=== PATIENT | female | born 1965 | race Caucasian/White ===

== ENCOUNTER 2016-12-06 13:34 | Observation (INO) | payer OTHER ==
[~2016-12-06] VITALS: Ht 162.6 cm; Wt 61.7 kg
[~2016-12-06 13:34] MED LIST: AMOX TR-K600 MG/5 M PO; BACLOFEN10 MG PO; BACLOFEN20 MG PO; CALCIUM + D3 E1 EACH PO; CALCIUM 600 +1 EAC1 PO; CEFUROXIME500 MG PO; CELEXA40 MG PO; CLONAZEPAM0.5 MG PO; COLACE100 MG PO; DENAVIR 1% TP; DENAVIR1.5 GM TP; DEPO-PROVER150 MG/ML IM; DESITIN DIAPER113 GM TP; DOCUSATE SODIU100 MG PO; FIBER LAXATIVE PO; FIBER TABS625 MG PO; FIBER-TABS625 MG PO; FLEET ENEMA-AD118 ML PR; IBUPROFEN400 MG PO; LAXATIVE5 M1 PO; LINZESS290 MCG PO; MIRALAX17 GM PO; MIRALAX255 GM PO; MOBIC7.5 MG PO; OYSTER SHELL 21 EACH PO; PHENOBARBITAL32.4 MG PO; PHILLIPS'400 MG/5 M PO; POLYETHYLENE GL17 GM PO; PROSOURCE LIQUI30 ML PO; Q-TUSSIN DM SY240 ML PO; ROBITUSSIN100 MG/5 M PO; SENNA LAXATIVE8.6 MG PO; TRAMADOL HCL50 MG PO; TYLENOL REGULA325 MG PO; VITAMIN C500 M1 PO
[2016-12-06 14:29] LABS: HEMATOCRIT 41.4 % (36.0-46.0); MCH 30.8 PG (29.0-34.0); MCHC 31.9 G/DL (30.0-36.0); MCV 96.5 FL (83-99); MEAN PLAT.VOLUME 10.4 uM^3 (9.5-12.4); PLATELET COUNT 168 K/uL (156-360); RBC DIS.WIDTH-CV 12.5 % (11.8-14.6); RBC DIS.WIDTH-SD 44.7 % (39-53); RED BLOOD COUNT 4.29 M/uL (3.80-5.20)
[2016-12-06 14:39] LABS: CHLORIDE 104 mEq/L (99-109); POTASSIUM 3.9 mEq/L (3.7-5.4); SODIUM 140 mEq/L (136-147)
[2016-12-06 14:41] LABS: GLUCOSE 82 mg/dL (70-99)
[2016-12-06 14:42] LABS: ANION GAP 9 MEQ/L (2-14)
[2016-12-06 14:45] LABS: GFR ESTIMATE (CALCULATED) > 59 mL/min/
[2016-12-06 14:46] LABS: UREA NITROGEN (BUN) 20 mg/dL (9-23)
[2016-12-06 14:48] LABS: LIPASE 60 U/L (1.0-51.0)
[2016-12-06 14:49] LABS: D-DIMER ELISA 1.73 mg/L FEU (< 0.57)
[2016-12-06 14:51] LABS: TROP-I INTERPRETATION NEGATIVE; TROPONIN-I < 0.01 ng/mL (0.0-0.30)
[2016-12-06 14:53] LABS: QUANTITATIVE HCG < 4.0 MIU/ML
[2016-12-06] MEDS ORDERED: TRAMADOL HCL50 MG PO (19:36)
[2016-12-06] MEDS ORDERED: DESITIN MULTI-P99 GM TP (19:38)
[2016-12-06] MEDS ORDERED: METHIMAZOLE5 MG PO (19:38)
[2016-12-06] MEDS ORDERED: MELOXICAM7.5 MG PO (19:38)
[2016-12-06] MEDS ORDERED: LYRICA50 MG PO (19:38)
[2016-12-06] MEDS ORDERED: FLEET ENEMA-AD118 ML PR (19:38)
[2016-12-06] MEDS ORDERED: IBUPROFEN400 MG PO (19:39)
[2016-12-06 19:59] LABS: TOTAL BILIRUBIN 0.3 mg/dL (0.0-1.0)
[2016-12-06 20:00] LABS: ALKALINE PHOSPHATASE 106 IU/L (3-129)
[2016-12-06 20:02] LABS: DIRECT BILIRUBIN 0.1 mg/dL (0.0-0.3)
[2016-12-06 21:37] VITALS: BP 148/72
[2016-12-07 00:14] LABS: TROP-I INTERPRETATION NEGATIVE; TROPONIN-I < 0.01 ng/mL (0.0-0.30)
[2016-12-07 00:45] LABS: HDL CHOLESTEROL 53 MG/DL (Desirable>=50); LDL CHOLESTEROL 96 mg/dL (Desirable<100); NON-HDL CHOLESTEROL 109 mg/dL (Desirable<160); TOTAL CHOLESTEROL 162 mg/dL (Desirable<200); TRIGLYCERIDES 67 MG/DL (Normal: <150)
[2016-12-07 04:00] VITALS: BP 106/64
[2016-12-07 07:03] LABS: TROP-I INTERPRETATION NEGATIVE; TROPONIN-I < 0.01 ng/mL (0.0-0.30)
[2016-12-07 07:41] VITALS: BP 116/66
[2016-12-07 11:54] VITALS: BP 117/89
[2016-12-07] MEDS ORDERED: PEPCID AC20 MG PO ×2 (12:53→13:18)
[2016-12-07] MEDS ORDERED: MAALOX ADVANCE1 EACH PO ×2 (12:54→13:19)
== END 2016-12-07 14:33 | disposition home or self-care (01) ==
LOC: EME → EDBD 13:34 → EDOF 19:33 → 5WEST 19:33
PROVIDERS: Emergency Medicine; Physician Assistant Medical
DX: R07.9 Chest pain, unspecified (principal); Z82.49 Family history of ischemic heart disease and other diseases of the circulatory system; K81.9 Cholecystitis, unspecified; G80.0 Spastic quadriplegic cerebral palsy; G47.33 Obstructive sleep apnea (adult) (pediatric); R11.0 Nausea; R06.02 Shortness of breath; G40.909 Epilepsy, unspecified, not intractable, without status epilepticus; F71 Moderate intellectual disabilities; Z98.1 Arthrodesis status; Z81.1 Family history of alcohol abuse and dependence; Z88.8 Allergy status to other drugs, medicaments and biological substances
CPT/HCPCS: 71010; 71275; 76705; 80048; 80061; 80076; 83690; 84484; 84702; 85027; 85379; 93005; 99281; 99285; G0378; J2270; S0028

== ENCOUNTER → 2017-08-13 | Outpatient (CLI) | payer OTHER ==
[~2017-08-13] VITALS: Ht 162.6 cm; Wt 52.2 kg
[~2017-08-13] MED LIST changes: +DESITIN MULTI-P99 GM TP; +LYRICA50 MG PO; +MAALOX ADVANCE1 EACH PO; +MELOXICAM7.5 MG PO; +METHIMAZOLE5 MG PO; +PEPCID AC20 MG PO
[2017-08-13 10:28] VITALS: BP 166/84
== END | disposition home or self-care (01) ==
LOC: IVINF 09:30
DX: M81.0 Age-related osteoporosis without current pathological fracture (principal); G80.9 Cerebral palsy, unspecified; Z87.19 Personal history of other diseases of the digestive system